=== PATIENT | male | born 1980 | race Asian ===

== ENCOUNTER 2022-10-11 12:22 | Outpatient (CLI) | payer BC ==
[~2022-10-11 12:22] MED LIST: Iopamidol 300 61% 100 ML VIAL FS ONE
== END 2022-10-11 12:23 | disposition home or self-care (01) ==
LOC: CSHCT 12:22
PROVIDERS: ATTEND Urology
DX: N40.1 Benign prostatic hyperplasia with lower urinary tract symptoms (principal); Q62.5 Duplication of ureter; N28.89 Other specified disorders of kidney and ureter; R31.29 Other microscopic hematuria; K57.30 Diverticulosis of large intestine without perforation or abscess without bleeding
CPT/HCPCS: 74178; Q9967